=== PATIENT | female | born 1985 | race Hispanic/Latino ===

== ENCOUNTER → 2021-03-21 15:41 | Outpatient (CLI) | payer MEDICAID, SELFPAY ==
--- NOTE | ~2021-03-21 | US_ITS ---
EXAMINATION: US OB <= 14 weeks fetus DATE: 03/21/2021 16:22 INDICATION: Routine care TECHNIQUE: Real-time transabdominal obstetric ultrasound. FINDINGS: No prior studies for comparison. The uterus measures 13.1 x 5.5 x 6 cm. There is an intrauterine gestational sac, with pole iden tified. The crown rump length measures 2.99 cm, which correlates with a estimated gestational age of 9 weeks 6 days. heart tones are identified measuring 172 bpm. There is a small subchorionic hemorrhage measuring 2.3 x 1.8 x 0.5 cm. There is a left ovarian corpus luteal cyst measuring 2.7 cm. IMPRESSION: 1. SL IUP with an EGA of 9 weeks, 6 days (EDC by current ultrasound of 10/18/2021). 2: Small subchorionic hemorrhage. Reviewed, dictated and finalized at location A. [facility] [employer] IMPRESSION: 1. SL IUP with an EGA of 9 weeks, 6 days (EDC by current ultrasound of 10/19/19). 2: Small subchorionic hemorrhage.
== END ==
PROVIDERS: Visit Provider Obstetrics & Gynecology
DX: O46.91 Antepartum hemorrhage, unspecified, first trimester (principal); Z3A.09 9 weeks gestation of pregnancy
CPT/HCPCS: 76801

== ENCOUNTER 2021-05-01 13:20 | Outpatient (CLI) | payer OTHER, SELFPAY ==
--- NOTE | ~2021-05-01 | US_ITS ---
EXAMINATION: US OB follow up DATE: 05/01/2021 13:52 INDICATION: Encounter for supervision of normal first . TECHNIQUE: Real-time ultrasound of the pelvis was performed. COMPARISON: Ultrasound 03/21/2021 FINDINGS: There is a single living fetus in breech presentation. The placenta is anterior. heart rate is 152 beats per minute (bpm). The amniotic fluid volume is subjectively normal. IMPRESSION: 1. Single living fetus in breech presentation. Reviewed, dictated and finalized at location A. NG ANALYST
== END 2021-05-01 13:21 | disposition home or self-care (01) ==
DX: Z34.91 Encounter for supervision of normal pregnancy, unspecified, first trimester (principal); Z3A.14 14 weeks gestation of pregnancy
CPT/HCPCS: 76816